=== PATIENT | male | born 1930 | race Caucasian/White ===

== ENCOUNTER 2017-07-29 06:51 | Day surgery (SDC) | payer MEDICARE, BC ==
[~2017-07-29] VITALS: Ht 177.8 cm; Wt 86.4 kg
[~2017-07-29 06:51] MED LIST: ADULT LOW DOSE81 MG; ALINIA500 MG PO; ATENOLOL100 MG PO; COUMADIN2 MG PO; ENALAPRIL MALEA10 MG; HYDROCHLOROTHIA25 MG; LASIX20 MG PO; LOVENOX150 MG/ML SQ; METAMUCIL0.52 G; MINOXIDIL2.5 MG; MULTIVITAMIN1 TAB PO; OMEPRAZOLE20 M2 PO; SPIRONOLACTONE25 MG PO; TYLENOL325 MG PO; TYLENOL650 MG PO
[2017-07-29] MEDS ORDERED: LASIX20 M1 PO (07:05)
[2017-07-29] MEDS ORDERED: ALDACTONE25 M1 PO (07:06)
[2017-07-29] MEDS ORDERED: CORGARD20 M2 PO (07:06)
[2017-07-29] MEDS ORDERED: METAMUCIL0.4 GM PO (07:06)
[2017-07-29 07:56] LABS: INR 1.2 INR (0.9-1.1); PROTHROMBIN TIME 14.5 SECONDS (9.0-13.6)
[2017-07-29 07:59] LABS: BASO % 0.2 % (0-2); EOS % 0.4 % (0-7); EOSINOPHIL ABSOLUTE COUNT 0.1 tho/cmm (0.0-0.7); HCT-HEMATOCRIT 35.4 % (36.0-53.5); HGB-HEMOGLOBIN 11.2 gm/dl (13.5-17.0); IMMATURE GRANULOCYTES ABSOLUTE 0.02 tho/cmm (0-0.03); IMMATURE GRANULOCYTES PERCENT 0.2 % (0-0.3); LYMPH ABSOLUTE COUNT 0.7 tho/cmm (0.8-4.5); MCH (MEAN CORPUSCULAR HGB) 23.2 pg (28.0-32.0); MCHC MEAN CORPUSCULAR HGB CONC 31.6 % (32.0-36.0); MCV (MEAN CELL VOLUME) 73.3 fl (82.0-96.0); MONO % 10.3 % (0-12); MONOCYTE ABSOLUTE COUNT 1.2 tho/cmm (0.0-1.2); NEUTROPHILS % 82.9 % (40-80); PLATELET COUNT 162 tho/cmm (150-450); RED BLOOD COUNT 4.83 mil/cmm (4.40-5.70); RED CELL DISTRIBUTION WIDTH 16.6 % (12.4-16.4); WHITE BLOOD COUNT 12.1 tho/cmm (4.0-10.0)
[2017-07-29 14:35] LABS: BODY FLUID APPEARANCE CLOUDY (CLEAR); BODY FLUID COLOR YELLOW (COLORLESS); BODY FLUID RBC COUNT <1000 cmm (0); BODY FLUID TYPE RT PLEURAL FLUID; BODY FLUID VOLUME 1100 ml; BODY FLUID WBC COUNT 167 cmm
[2017-07-29 14:47] LABS: BODY FLUID LYMPHOCYTES 16 %; BODY FLUID MACROPHAGES 56 %; BODY FLUID MESOTHELIAL CELLS 1 %; BODY FLUID NEUTROPHILS 27 %
[2017-07-29 17:26] LABS: BODY FLUID TYPE PLEURAL FLUID
== END 2017-07-29 10:30 ==
LOC: SHSB 06:51 → US 06:51 → SHSB 06:54 → US 08:00
PROVIDERS: Family Medicine
PROC: 0W993ZZ Drainage of Right Pleural Cavity, Percutaneous Approach (ICD-10-PCS; principal; 2017-07-29)
DX: J90 Pleural effusion, not elsewhere classified (principal); K74.60 Unspecified cirrhosis of liver; I10 Essential (primary) hypertension; Z79.899 Other long term (current) drug therapy
CPT/HCPCS: J7030